=== PATIENT | male | born 1955 | race Caucasian/White ===

== ENCOUNTER → 2019-03-22 | Outpatient (CLI) | payer OTHER ==
--- NOTE | 2019-03-22 09:24 | 2DMMODE ---
[facility] [place] [place] [address] 2 D/M-MODE ECHOCARDIOGRAM Name: LOYD HOLMAN Room #: REG CL [facility]#: [id number] ������������� Admission: 03/22/19 ������������� Attend Phys: Hiren Hogan Discharge: ��� ������������� ��� Date of : 59 Date of Service: 03/22/19 0924 �� Report #: [id number] �������� ��������������������������������������������[id number] THIS REPORT FOR: //name// APPROVED REPORT Study performed: 03/22/2019 08:03:40 EXAM: Comprehensive 2D, Doppler, and color-flow Echocardiogram Patient Location: Out-Patient Room #: Echo lab 2 Status: routine BSA: 2.02 HR: 71 bpm BP: 140/88 mmHg Rhythm: NSR Other Information Study Quality: Good Indications Abnormal ECG Palpitations Chest Pain 2D Dimensions RVDd: 35.21 mm IVSd: 9.66 (7-11mm) LVOT Diam: 21.44 (18-24mm) LVDd: 51.39 mm PWd: 9.52 (7-11mm) Ascending Ao: 34.39 (22-36mm) LVDs: 32.06 (25-40mm) Aortic Root: 30.50 mm IVC: 16.00 mm Volumes Left Atrial Volume (Systole) Single Plane 4CH: 50.10 mL Single Plane 2CH: 61.59 mL LA ESV Index: 31.00 mL/m2 Aortic Valve AoV Peak Bhavik.: 1.12 m/s AO Peak Gr.: 5.06 mmHg LVOT Max P.72 mmHg LVOT Max V: 0.96 m/s MOISES Vmax: 3.10 cm2 Mitral Valve E/A Ratio: 1.2 [facility] [address] [address] 2 D/M-MODE ECHOCARDIOGRAM Name: LOYD HOLMAN Room #: REG [facility]#: [id number] ������������� Admission: 03/22/19 ������������� Attend Phys: Hiren Hogan Discharge: ��� ������������� ��� Date of : 59 Date of Service: 03/22/19 0924 �� Report #: [id number] �������� ��������������������������������������������[id number] MV Decel. Time: 223.31 ms MV E Max Bhavik.: 0.77 m/s MV A Bhavik.: 0.62 m/s MV PHT: 64.76 ms IVRT: 96.89 ms Pulmonary Valve PV Peak Bhavik.: 0.96 m/s PV Peak Gr.: 3.71 mmHg Pulmonary Vein P Vein S: 0.86 m/s P Vein A: 0.27 m/s P Vein D: 0.57 m/s P Vein A Dur.: 92.3 msec P Vein S/D Ratio: 1.51 Tricuspid Valve TR Peak Bhavik.: 2.70 m/s TR Peak Gr.: 29.27 mmHg PA Pressure: 34.00 mmHg Left Ventricle The left ventricle is normal size. There is normal LV segmental wall motion. There is normal left ventricular wall thickness. Left ventricular systolic function is normal. The left ventricular ejection fraction is within the normal range. LVEF is 60-65%. The left ventricular diastolic function is normal. Right Ventricle The right ventricle is normal size. The right ventricular systolic function is normal. Atria The left atrium size is normal. The right atrium size is normal. Aortic Valve The aortic valve is normal in structure. No aortic regurgitation is present. There is no aortic valvular stenosis. Mitral Valve The mitral valve is normal in structure. Mild mitral regurgitation. No evidence of mitral valve stenosis. Tricuspid Valve The tricuspid valve is normal in structure. There is mild tricuspid regurgitation. Estimated PAP 35 mmHg. There is mild pulmonary hypertension. [address] [address] 2 D/M-MODE ECHOCARDIOGRAM Name: LOYD HOLMAN FELICIA Room #: REG CL [facility]#: [id number] ������������� Admission: 03/22/19 ������������� Attend Phys: Hiren Hogan Discharge: ��� ������������� ��� Date of : 59 Date of Service: 03/22/19 0924 �� Report #: [id number] �������� ��������������������������������������������[id number] Pulmonic Valve The pulmonary valve is normal in structure. Trace pulmonic regurgitation. Great Vessels The aortic root is normal in size. IVC is normal in size and collapses >50% with inspiration. Pericardium There is no pericardial effusion. <Conclusion> Left ventricular systolic function is normal. There is normal LV segmental wall motion. LVEF is 60-65%. Normal diastolic function The aortic valve is normal in structure. No aortic regurgitation or stenosis The mitral valve is normal in structure. Mild mitral regurgitation. There is mild tricuspid regurgitation. Estimated pulmonary artery pressure of 35 mmHg. There is no pericardial effusion. ��������������������������������������������� <ELECTRONICALLY SIGNED> ���������������������������������������� By: Josh Trujillo MD, FACC ��������������������������������������������� 03/22/19923 3 3 Josh Trujillo MD, FACC /INF
== END ==
LOC: CV 07:30
DX: I08.1 Rheumatic disorders of both mitral and tricuspid valves (principal); E78.5 Hyperlipidemia, unspecified

== ENCOUNTER 2021-02-08 15:25 | Emergency (ER) | payer OTHER ==
[~2021-02-08] VITALS: Ht 180.3 cm; Wt 63.5 kg
[2021-02-08] MEDS ORDERED: LISINOPRIL-HCT1 EACH PO (20:17)
[2021-02-08] MEDS ORDERED: DEXAMETHASONE 22 MG PO (20:17)
[2021-02-08] MEDS ORDERED: XTANDI40 MG PO (20:18)
[2021-02-08 20:30] LABS: ABSOLUTE NEUTROPHILS 3.7 thou/uL (1.4-8.2); BASOPHILS 0.7 % (0.0-2.0); EOSINOPHILS 0.5 % (0.0-3.0); HEMATOCRIT 38.5 % (42.0-52.0); HEMOGLOBIN 13.1 gm/dL (14.0-18.0); LYMPHOCYTES 15.2 % (24.0-44.0); MCH 30.3 pg (26.0-34.0); MONOCYTES 12.7 % (1.0-8.0); PLATELET COUNT 326 thou/uL (150-400); POLYS 70.9 % (36.0-66.0); RBC 4.32 mil/uL (4.50-6.00); RDW 12.5 % (10.5-14.5); WBC 5.2 thou/uL (4.0-11.0)
[2021-02-08 20:59] LABS: CALCIUM 10.3 mg/dL (8.5-10.1); POTASSIUM 3.7 mmol/L (3.5-5.1)
[2021-02-08 21:06] LABS: ALBUMIN 3.8 g/dL (3.4-5.0); TOTAL BILIRUBIN 0.5 mg/dL (0.2-1.0); TOTAL PROTEIN 6.8 g/dL (6.4-8.2)
[2021-02-08 21:25] VITALS: BP 163/87
== END 2021-02-08 20:55 | disposition short-term general hospital (02) ==
LOC: ER 15:25
PROVIDERS: Emergency Medicine
DX: S32.028A Other fracture of second lumbar vertebra, initial encounter for closed fracture (principal); Z20.822 Contact with and (suspected) exposure to COVID-19; S32.14XA Type 1 fracture of sacrum, initial encounter for closed fracture; G83.4 Cauda equina syndrome; Z85.46 Personal history of malignant neoplasm of prostate; Z79.899 Other long term (current) drug therapy; X58.XXXA Exposure to other specified factors, initial encounter; Y93.89 Activity, other specified; Y92.89 Other specified places as the place of occurrence of the external cause; Y99.9 Unspecified external cause status